=== PATIENT | female | born 1940 | race Hispanic/Latino ===

== ENCOUNTER → 2023-04-20 | Outpatient (CLI) | payer MEDICARE ==
[~2023-04-20] MED LIST: AMLO-257 PO; ASPI-1443 PO; CHOL500051 PO; EZET10TA13 PO; ISOS60TA77 PO; METF-444 PO; METO-408 PO; OMEP20CA12 PO; REGADENOSON 0.4 MG/5 ML PF SYG IVP ONE; ROSU5TAB12 PO
== END | disposition home or self-care (01) ==
LOC: SHCH 08:32
PROVIDERS: ATTEND Internal Medicine Cardiovascular Disease
DX: R07.9 Chest pain, unspecified (principal); I45.10 Unspecified right bundle-branch block
CPT/HCPCS: 78452; 96374; 93017; J2785; A9500 ×2